=== PATIENT | male | born 1945 | race Hispanic/Latino ===

== ENCOUNTER 2023-03-10 13:16 | Emergency (ER) | payer MEDICARE ==
[~2023-03-10] VITALS: Ht 185.4 cm; Wt 105.7 kg
[2023-03-10 16:13] LABS: BASOPHILS % (AUTO) 0.3 % (0.0-5.0); HEMATOCRIT 42.5 % (42-54); LYMPHOCYTES % (AUTO) 42.3 % (21.0-51.0); MEAN CORPUSCULAR HEMOGLOBIN 31.3 pg (27.0-33.0); MEAN CORPUSCULAR HGB CONC 34.6 g/dL (32.0-36.0); MEAN CORPUSCULAR VOLUME 90.6 fL (79-99); MONOCYTES % (AUTO) 7.9 % (3.0-13.0); NEUTROPHILS % (AUTO) 47.1 % (40.0-77.0); PLATELET COUNT (AUTO) 148 K/uL (130-400); RED BLOOD CELL COUNT(AUTO) 4.69 MIL/uL (4.50-6.20); RED CELL DISTRIBUTION WIDTH 13.8 % (11.0-15.5); WHITE BLOOD COUNT (AUTO) 7.9 K/uL (4.8-10.8)
[2023-03-10 16:23] LABS: CREATININE 0.6 mg/dL (0.5-1.5); POTASSIUM 3.8 mmol/L (3.5-5.1)
[2023-03-10 16:25] LABS: INR 1.06 (0.85-1.15); PROTHROMBIN TIME 11.5 SEC (9.6-11.6)
[2023-03-10 16:32] LABS: ALBUMIN 3.6 g/dL (3.5-5.0); MAGNESIUM 1.8 mg/dL (1.80-2.40); TOTAL PROTEIN, SERUM 7.5 g/dL (6.0-8.3)
[2023-03-10 16:34] LABS: B-TYPE NATRIURETIC PEPTIDE 15 pg/mL (0-100)
[2023-03-10] MEDS ORDERED: KETOROLAC 15MG/ML VIAL (15MG/ML) ONE (17:12)
[2023-03-10] MEDS ORDERED: KETOROLAC 15MG/ML VIAL (15MG/ML) IV ONE (17:30)
[2023-03-10] MEDS ORDERED: IOHEXOL 350 MG/ML 100ML INFUS..BTL IV ONE (18:15)
[2023-03-10] MEDS ORDERED: NAPR-1196 PO (19:32)
[2023-03-10 19:36] VITALS: BP 135/81
== END 2023-03-10 19:42 | disposition home or self-care (01) ==
LOC: EDH 13:16
DX: G89.29 Other chronic pain (principal); M54.2 Cervicalgia; I10 Essential (primary) hypertension; Z90.89 Acquired absence of other organs
CPT/HCPCS: 99285; 96374; 71275; 71045; 83735; 84484; 80053; 83880; 85025; 85610; 36415; 93005; J1885; Q9967